=== PATIENT | male | born 1945 | race Caucasian/White ===

== ENCOUNTER 2017-04-12 12:00 | Emergency (ER) | payer OTHER ==
[2017-04-12 12:13] VITALS: O2SAT 97
--- NOTE | 2017-04-12 12:45 | EDPHY ---
H & P Stated Complaint: urinary retention, unable to urinate Time Seen by Provider: 04/12/17 12:37 HPI/ROS: CHIEF COMPLAINT: Urinary retention HISTORY OF PRESENT ILLNESS: 71-year-old male went to a new primary primary care provider today complaining of urinary retention since last evening, bladder distension, flank pain. Was sent to the emergency department for evaluation. He notes prior history of similar in the past however never necessitated Evans catheterization. No known history of hypertension, no history of renal dysfunction. No back pain REVIEW OF SYSTEMS: A ten point review of systems was performed and is negative with the exception of the items mentioned in the HPI PAST MEDICAL & SURGICAL HISTORY: No pertinent medical or surgical history SOCIAL HISTORY:Nonsmoker PHYSICAL EXAM (Prior to examination, patient consented to physical exam, hands were washed and my usual and customary physical exam procedures followed) 1) GENERAL: Well-developed, well-nourished, alert and oriented. Appears to be in no acute distress. 2) HEAD: Normocephalic, atraumatic 3) HEENT: Pupils equal, round, reactive to light bilaterally. Sclera anicteric. 4) NECK: Full range of motion, no meningeal signs. 5) LUNGS: Clear auscultation bilaterally, no wheezes, no rhonchi, no retractions. 6) HEART: Regular rate and rhythm, no murmur, no heave, no gallop. 7) ABDOMEN: Suprapubic region is distended, tender. No guarding, no rebound, no focal tenderness, negative McBurney's, negative Omalley's, negative Rovsing's , negative peritoneal sign, 8) MUSCULOSKELETAL: Moving all extremities, no focal areas of tenderness, no obvious trauma. No peripheral edema or discoloration. 9) BACK: No CVA tenderness, no midline vertebral tenderness, no fluctuance, no step-off, no obvious trauma, no visual or palpable abnormality. 10) SKIN: No rash, no petechiae. 11) Psychiatric: Patient is oriented X 3, there is no agitation. 12) : Circumcised, normal male external genitalia, no urethral discharge or bleeding, bilateral testicles nontender, perineum nontender. DIFFERENTIAL DIAGNOSIS: In no particular order including but not limited to cauda equina, prostatitis, BPH, cystitis - Personal History Current Tetanus/Diphtheria Vaccine: Unsure Current Tetanus Diphtheria and Acellular Pertussis (TDAP): Unsure - Medical/Surgical History Hx Asthma: No Hx Chronic Respiratory Disease: No Hx Diabetes: No Hx Cardiac Disease: No Hx Renal Disease: No Hx Cirrhosis: No Hx Alcoholism: No Hx HIV/AIDS: No Hx Splenectomy or Spleen Trauma: No Other PMH: BPH - Social History Smoking Status: Never smoked Constitutional: Initial Vital Signs Temperature (C) 36.8 C 04/12/17 12:10 Heart Rate 64 04/12/17 12:10 Respiratory Rate 16 04/12/17 12:10 Blood Pressure 176/92 H 04/12/17 12:10 O2 Sat (%) 97 04/12/17 12:10 O2 Delivery Mode Room Air Allergies/Adverse Reactions: No Known Allergies Allergy (Unverified 04/12/17 12:09) Home Medications: Medication Instructions Recorded NK [No Known Home Meds] 04/12/17 Medical Decision Making ED Course/Re-evaluation: 12:45 p.m.: Bladder scanning from a nursing staff reveals greater than 1 L of retained urine. Will obtain urinalysis, catheterization, check creatinine. 1:34 p.m.: Re-evaluation, feeling improvement after Evans catheterization placement. Urinalysis show no pyuria/bacteriuria. Abdomen is soft no guarding no rebound no McBurney's point pain. Discussed his normal creatinine, normal glucose. Plan will be discharge with Evans catheter in place, return to the ER in 2 days for recheck as today is Saturday of a long holiday weekend. - Data Points Laboratory Results: 04/12/17 04/12/17 13:10 13:07 POC Hgb 13.9 gm/dL gm/dL (13.7-17.5) POC Hct 41 % % (40-51) POC Sodium 142 mEq/L mEq/L (135-145) POC Potassium 3.9 mEq/L mEq/L (3.3-5.0) POC Chloride 102 mEq/L mEq/L (97-110) POC BUN 15 mg/dL mg/dL (7-23) POC Creatinine 0.9 mg/dL mg/dL (0.7-1.3) POC Glucose 98 mg/dL mg/dL (70-100) Urine Color YELLOW Urine Appearance CLEAR Urine pH 5.0 (5.0-7.5) Ur Specific [place] 1.008 (1.002-1.030) Urine Protein NEGATIVE (NEGATIVE) Urine Ketones NEGATIVE (NEGATIVE) Urine Blood NEGATIVE (NEGATIVE) Urine Nitrate NEGATIVE (NEGATIVE) Urine Bilirubin NEGATIVE (NEGATIVE) Urine Urobilinogen NEGATIVE EU EU (0.2-1.0) Ur Leukocyte Esterase NEGATIVE (NEGATIVE) Urine RBC 1-3 /hpf /hpf (0-3) Urine WBC NONE SEEN /hpf /hpf (0-3) Ur Epithelial Cells NONE SEEN /lpf /lpf (NONE-1+) Urine Glucose NEGATIVE (NEGATIVE) Point of Care Test Results: 04/12/17 13:07 POC Sodium 142 POC Potassium 3.9 POC Chloride 102 POC BUN 15 POC Creatinine 0.9 POC Glucose 98 Departure - Departure Disposition: Home, Routine, Self-Care Clinical Impression: Urinary retention Condition: Good Instructions: Urinary Retention in Men (ED) Additional Instructions: Return to the emergency department immediately if you develop abdominal pain, fever, chills or any other symptoms that concern you. Referrals: Return, to the ER in 2 days for recheck [Other] - 04/14/17
[2017-04-12 14:31] VITALS: BP 168/91; PULSE 55; RESP 12; TEMP 98.1
== END 2017-04-12 14:35 | disposition home or self-care (01) ==
PROC: 0T9B70Z Drainage of Bladder with Drainage Device, Via Natural or Artificial Opening (ICD-10-PCS; principal; 2017-04-12)
DX: R33.9 Retention of urine, unspecified (principal)
CPT/HCPCS: 82947-QW

== ENCOUNTER 2017-04-13 14:20 | Emergency (ER) | payer OTHER ==
[2017-04-13 14:26] VITALS: RESP 16
--- NOTE | 2017-04-13 15:31 | EDPHY ---
H & P Stated Complaint: ndiaye placed here 04/12, returns w/hematuria and "puss" at insertion site - Personal History Current Tetanus/Diphtheria Vaccine: Unsure Current Tetanus Diphtheria and Acellular Pertussis (TDAP): Unsure - Medical/Surgical History Hx Asthma: No Hx Chronic Respiratory Disease: No Hx Diabetes: No Hx Cardiac Disease: No Hx Renal Disease: No Hx Cirrhosis: No Hx Alcoholism: No Hx HIV/AIDS: No Hx Splenectomy or Spleen Trauma: No Other PMH: BPH - Social History Smoking Status: Never smoked Time Seen by Provider: 04/13/17 15:06 HPI/ROS: CHIEF COMPLAINT: "Blood in urine" HISTORY OF PRESENT ILLNESS: 71-year-old male seen emergency department yesterday by myself for complaints of acute area retention which point Ndiaye catheter was placed, urinalysis obtained which is negative for hematuria, pyuria , bacteriuria, creatinine in obtained which was normal, discharged home. States that he went for a walk today and he returned from his walk he noticed a reddish appearance to his urine. It is patent and draining. Denies suprapubic discomfort. Denies abdominal pain denies fever chills. Denies acute testicular genitalia trauma. Denies myalgias. REVIEW OF SYSTEMS: A ten point review of systems was performed and is negative with the exception of the items mentioned in the HPI PAST MEDICAL & SURGICAL HISTORY: Urinary retention seen in the ER yesterday SOCIAL HISTORY: PHYSICAL EXAM (Prior to examination, patient consented to physical exam, hands were washed and my usual and customary physical exam procedures followed) 1) GENERAL: Well-developed, well-nourished, alert and oriented. Appears to be in no acute distress. 2) HEAD: Normocephalic, atraumatic 3) HEENT: Pupils equal, round, reactive to light bilaterally. Sclera anicteric. [Nasopharynx, oropharynx, clear, no lesions. Moist mucous membranes 4) NECK: Full range of motion, no meningeal signs. 5) LUNGS: Clear auscultation bilaterally, no wheezes, no rhonchi, no retractions. 6) HEART: Regular rate and rhythm, no murmur, no heave, no gallop. 7) ABDOMEN: No guarding, no rebound, no focal tenderness, negative McBurney's, negative Omalley's, negative Rovsing's, negative peritoneal sign, 8) MUSCULOSKELETAL: Moving all extremities, no focal areas of tenderness, no obvious trauma. No peripheral edema or discoloration. 9) BACK: No CVA tenderness, no midline vertebral tenderness, no fluctuance, no step-off, no obvious trauma, no visual or palpable abnormality. 10) SKIN: No rash, no petechiae. 11) : Circumcised male, catheter in place, no vasquez catheter discharge or leakage, no signs of infection. Leg bag has grossly bloody appearance. No clots.. DIFFERENTIAL DIAGNOSIS: In no particular include but limited to rhabdomyolysis , cystitis, trauma (Anu Murphy) Constitutional: Initial Vital Signs Temperature (C) 37.3 C 04/13/17 14:23 Heart Rate 70 04/13/17 14:23 Respiratory Rate 16 04/13/17 14:23 Blood Pressure 162/72 H 04/13/17 14:23 O2 Sat (%) 97 04/13/17 14:23 O2 Delivery Mode Room Air Allergies/Adverse Reactions: No Known Allergies Allergy (Verified 04/13/17 14:23) Home Medications: Medication Instructions Recorded Cephalexin [Keflex] 500 mg PO TID 7 Days cap 04/13/17 Medical Decision Making ED Course/Re-evaluation: The patient was re-evaluated with serial examinations. He is noted to have hematuria. Normal CK. Week sites noted in urine. Case discussed with Dr. Iris Mcgovern, secondary supervising physician in emergency department. This time and we do not think that hospitalization is indicated. He will be covered with cephalosporin, given 1st dose of ceftriaxone in the ER, discharged with Keflex. Doubt urosepsis. Doubt pyelonephritis. Doubt prostatitis. Feels comfortable with this plan. Usual and customary discharge precautions and instructions provided. Care of patient under supervision of secondary supervising physician Dr Iris Mcgovern. (Anu Murphy) Other Provider: The patient was evaluated and managed by the Physician Nnp. I discussed the patient's presentation and course with the midlevel provider with them and agree with the evaluation. My co-signature indicates that I have reviewed this chart and I agree with the findings and plan of care as documented. I am the secondary supervising physician. (Iris Mcgovern) - Data Points Laboratory Results: Laboratory Results 04/13/17 15:27 04/13/17 15:27 Microbiology Results: MICROBIOLOGY 04/13/17 15:40 Urine,Catheterized Urine Culture - Preliminary Medications Given: Discontinued Medications Ceftriaxone Sodium/Dextrose (Rocephin 1 Gm (Premix)) 50 mls @ 100 mls/hr IV EDNOW ONE PRN Reason: Protocol Stop: 04/13/17 17:13 Last Admin: 04/13/17 16:48 Dose: 50 mls Sodium Chloride (Ns) 1,000 mls @ 0 mls/hr IV ONCE ONE PRN Reason: Wide Open Stop: 04/13/17 16:45 Last Admin: 04/13/17 16:48 Dose: 1,000 mls Departure - Departure Disposition: Home, Routine, Self-Care Clinical Impression: Hematuria, Indwelling urethral catheter present Condition: Good Instructions: Hematuria (ED) Additional Instructions: Return to emergency department if you develop abdominal pain, lightheadedness, or any other symptoms that concern you Referrals: Preston Mauro MD [Medical Doctor] - 2-3 days, call for appt. (Dr. Mauro is a urologist) Prescriptions: Cephalexin [Keflex] 500 mg PO TID 7 Days cap
[2017-04-13 15:44] LABS: PLATELET COUNT 227 10^3/uL (150-400)
[2017-04-13 15:54] LABS: CREATINE KINASE 74 IU/L (0-224)
[2017-04-13 15:58] LABS: INR 1.03 (0.83-1.16); PROTIME(PATIENT) 13.7 SEC (12.0-15.0)
[2017-04-13] MEDS ORDERED: NS 1,000 ML IV ONE (16:44)
[2017-04-13 17:29] VITALS: BP 162/91; PULSE 62; TEMP 98.6; O2SAT 98
== END 2017-04-13 17:33 | disposition home or self-care (01) ==
DX: R31.9 Hematuria, unspecified (principal); Z96.0 Presence of urogenital implants
CPT/HCPCS: 96374; 99284; J0696